=== PATIENT | male | born 1975 | race Two or more races ===

== ENCOUNTER → 2019-04-01 | Outpatient (CLI) | payer BC ==
[~2019-04-01] MED LIST: DEXA4TAB66 PO; GADOTERATE 7.5 MMOL/15 ML SYR ONE
== END | disposition home or self-care (01) ==
LOC: CFH 07:19
PROVIDERS: ATTEND Radiology Radiation Oncology
DX: C11.9 Malignant neoplasm of nasopharynx, unspecified (principal); G91.1 Obstructive hydrocephalus; Z79.899 Other long term (current) drug therapy
CPT/HCPCS: 70553; A9575

== ENCOUNTER → 2019-04-13 | Outpatient (CLI) | payer BC ==
[~2019-04-13] MED LIST changes: -GADOTERATE 7.5 MMOL/15 ML SYR ONE
== END | disposition home or self-care (01) ==
LOC: PETCFH 12:28
PROVIDERS: ATTEND Internal Medicine Hematology & Oncology
DX: C41.0 Malignant neoplasm of bones of skull and face (principal); R22.0 Localized swelling, mass and lump, head; K40.90 Unilateral inguinal hernia, without obstruction or gangrene, not specified as recurrent
CPT/HCPCS: 78815; A9552

== ENCOUNTER 2019-06-29 07:31 | Outpatient (CLI) | payer BC | END 2019-06-29 23:59 | disposition home or self-care (01) | LOC: ROC 07:31 | PROVIDERS: ATTEND Radiology Radiation Oncology | DX: C11.9 Malignant neoplasm of nasopharynx, unspecified (principal) | CPT/HCPCS: 99213; G0463 ==

== ENCOUNTER → 2019-09-19 | Outpatient (CLI) | payer BC | END | disposition home or self-care (01) | LOC: ROC 07:51 | PROVIDERS: ATTEND Radiology Radiation Oncology | DX: C11.9 Malignant neoplasm of nasopharynx, unspecified (principal) | CPT/HCPCS: 99213; G0463 ==

== ENCOUNTER 2019-10-26 14:34 | Inpatient (IN) | payer BC ==
[~2019-10-26] VITALS: Ht 170.2 cm; Wt 63.1 kg
--- NOTE | 2019-10-26 15:14 | NUR ---
orthos done as charted. law at bedside. aware of vs. piv est/labsdrawn/ivf infusing. plan for head ct. c/o insomnia x4 days, loss of appetite, fatigue. had hydrocephalus, no shunt or brain surg (fany jesus). in per cancer md. last rad/chemo august. as
[2019-10-26 15:22] LABS: BASOPHILS # (AUTO) 0.04 x10^3/uL (0-0.1); BASOPHILS % (AUTO) 1 % (0-1); EOSINOPHILS # (AUTO) 0.27 x10^3/uL (0-0.4); EOSINOPHILS % (AUTO) 4 % (1-7); LYMPHOCYTES % (AUTO) 21 % (22-44); MD NO; MEAN CORPUSCULAR HEMOGLOBIN 32.8 pg (27.5-34.5); MEAN CORPUSCULAR HGB CONC 32.2 g/dL (33.2-36.2); MEAN CORPUSCULAR VOLUME 101.9 fL (81-97); MONOCYTES # (AUTO) 0.55 x10^3/uL (0.2-0.8); MONOCYTES % (AUTO) 9 % (2-9); NEUTROPHILS # (AUTO) 4.02 x10^3/uL (1.8-6.8); NEUTROPHILS % (AUTO) 65 % (42-75); PLATELET COUNT 306 x10^3/uL (130-400); RED BLOOD COUNT 3.47 x10^6/uL (4.38-5.82); RED CELL DISTRIBUTION WIDTH 14.1 % (9.4-14.8)
[2019-10-26 15:29] LABS: INTERNATIONAL NORMALIZED RATIO 1.36 (0.93-1.1)
[2019-10-26 15:30] LABS: ALANINE AMINOTRANSFERASE 45 U/L (12-78); ALBUMIN 3.7 g/dL (3.4-5.0); ANION GAP 12 mmol/L (5-15); CALCIUM 9.5 mg/dL (8.5-10.1); CHLORIDE 104 mmol/L (98-107); CREATININE 2.12 mg/dL (0.7-1.3)
[2019-10-26 15:32] LABS: ALKALINE PHOSPHATASE 108 U/L (45-117); BILIRUBIN,TOTAL 0.6 mg/dL (0.2-1.0); TOTAL PROTEIN 7.7 g/dL (6.4-8.2)
--- NOTE | 2019-10-26 15:49 | NUR ---
labs back, ct wnl. awaiting ua. as
--- NOTE | 2019-10-26 15:56 | NUR ---
GIVEN WATER PER MD AND UA CUP.
--- NOTE | 2019-10-26 16:13 | NUR ---
TBADM DT ELEV CREATININE. PT AWARE AND AGREES. LAW IN ROOM.
--- NOTE | 2019-10-26 17:14 | NUR ---
BACK IN ROOM.
[2019-10-26] MEDS ORDERED: ACETAMINOPHEN 325 MG TABLET PO PRN (18:00)
[2019-10-26] MEDS ORDERED: DOCUSATE 100 MG CAPSULE PO PRN (18:00)
[2019-10-26] MEDS ORDERED: MELATONIN 3 MG TABLET PO PRN (18:00)
[2019-10-26] MEDS ORDERED: ONDANSETRON ODT 4 MG PO PRN (18:00)
[2019-10-26] MEDS ORDERED: ONDANSETRON 2MG/ML, 2ML IVPush PRN (18:00)
[2019-10-26] MEDS ORDERED: POLYETHYLENE GLYCOL 17 GM PACKET PO PRN (18:00)
--- NOTE | 2019-10-26 18:04 | NUR ---
REPORT GIVEN TO ANNELIESE FOR ROOM 437
[2019-10-26 18:30] VITALS: BP 125/82
[2019-10-26] MEDS: LACTATED RINGERS 1,000 ML IV SCH (19:33)
[2019-10-26] MEDS ORDERED: RIVA10TA2 PO (19:44)
[2019-10-26] MEDS ORDERED: ONDA8TAB9 PO (19:45)
[2019-10-26 21:49] LABS: MICROSCOPIC NOT IND
[2019-10-26 22:26] LABS: CREATININE,URINE RANDOM 28.6 mg/dL
[2019-10-27 00:59] VITALS: BP 102/65
[2019-10-27] MEDS: LACTATED RINGERS 1,000 ML IV SCH ×2 (05:02→15:00)
[2019-10-27] MEDS ORDERED: RIVAROXABAN 20 MG TABLET PO SCH (06:00)
[2019-10-27 06:37] VITALS: BP 100/69
[2019-10-27 07:48] LABS: ALBUMIN 3.2 g/dL (3.4-5.0); ANION GAP 6 mmol/L (5-15); CHLORIDE 110 mmol/L (98-107); MEAN CORPUSCULAR HEMOGLOBIN 33.7 pg (27.5-34.5); MEAN CORPUSCULAR HGB CONC 33.4 g/dL (33.2-36.2); MEAN CORPUSCULAR VOLUME 100.6 fL (81-97); MEAN PLATELET VOLUME 6.4 fL (7.4-10.4); PLATELET COUNT 281 x10^3/uL (130-400); RED BLOOD COUNT 3.13 x10^6/uL (4.38-5.82); RED CELL DISTRIBUTION WIDTH 13.9 % (9.4-14.8)
[2019-10-27 07:52] LABS: ALANINE AMINOTRANSFERASE 40 U/L (12-78); ALKALINE PHOSPHATASE 98 U/L (45-117); BILIRUBIN,TOTAL 0.7 mg/dL (0.2-1.0); CREATININE 1.68 mg/dL (0.7-1.3); TOTAL PROTEIN 6.8 g/dL (6.4-8.2)
[2019-10-27 08:27] LABS: BASOPHILS # (AUTO) 0.04 x10^3/uL (0-0.1); BASOPHILS % (AUTO) 1 % (0-1); EOSINOPHILS # (AUTO) 0.34 x10^3/uL (0-0.4); EOSINOPHILS % (AUTO) 10 % (1-7); LYMPHOCYTES # (AUTO) 1.04 x10^3/uL (1-3.4); LYMPHOCYTES % (AUTO) 30 % (22-44); MD SCAN; MONOCYTES # (AUTO) 0.47 x10^3/uL (0.2-0.8); MONOCYTES % (AUTO) 14 % (2-9); NEUTROPHILS # (AUTO) 1.57 x10^3/uL (1.8-6.8); NEUTROPHILS % (AUTO) 45 % (42-75)
[2019-10-27 13:23] VITALS: BP 99/68
== END 2019-10-27 16:20 | disposition home or self-care (01) | DRG 312 ==
LOC: ED 15:41 → EDIP 16:13 → 4NW 18:16 → DCLOUNGE 10-27 16:10
PROVIDERS: ADMIT Internal Medicine; ATTEND Family Medicine
DX: I95.1 Orthostatic hypotension (principal); N17.0 Acute kidney failure with tubular necrosis; C11.9 Malignant neoplasm of nasopharynx, unspecified; D53.9 Nutritional anemia, unspecified; E86.0 Dehydration; Z86.711 Personal history of pulmonary embolism; Z92.21 Personal history of antineoplastic chemotherapy; Z92.3 Personal history of irradiation
CPT/HCPCS: 36415; 70450; 70551; 71045; 80053; 81003; 82570; 84300; 85025; 85610; 85730; 93005; G0378; J7120

== ENCOUNTER 2019-11-21 11:09 | Outpatient (CLI) | payer BC ==
[~2019-11-21 11:09] MED LIST changes: +ONDA8TAB9 PO; +RIVA10TA2 PO
== END 2019-11-21 23:59 | disposition home or self-care (01) ==
LOC: LAB 11:09
PROVIDERS: ATTEND Internal Medicine Hematology & Oncology
DX: Z02.9 Encounter for administrative examinations, unspecified (principal)

== ENCOUNTER 2020-04-11 09:17 | Outpatient (CLI) | payer BC, MEDICAID ==
[2020-04-11] MEDS ORDERED: GADOTERATE 7.5 MMOL/15 ML SYR ONE (11:02)
== END 2020-04-11 23:59 | disposition home or self-care (01) ==
LOC: CFH 09:17
PROVIDERS: ATTEND Radiology Radiation Oncology
DX: C11.9 Malignant neoplasm of nasopharynx, unspecified (principal); H49.21 Sixth [abducent] nerve palsy, right eye; J32.9 Chronic sinusitis, unspecified
CPT/HCPCS: 70543; A9575

== ENCOUNTER → 2020-05-30 | Outpatient (CLI) | payer MEDICAID | END | disposition home or self-care (01) | LOC: PETCFH 08:12 | PROVIDERS: ATTEND Internal Medicine Hematology & Oncology | DX: C11.8 Malignant neoplasm of overlapping sites of nasopharynx (principal); K40.30 Unilateral inguinal hernia, with obstruction, without gangrene, not specified as recurrent | CPT/HCPCS: 78815; A9552 ==

== ENCOUNTER 2020-06-22 11:19 | Emergency (ER) | payer MEDICAID ==
[~2020-06-22] VITALS: Ht 170.2 cm; Wt 76.9 kg
[2020-06-22 11:24] VITALS: BP 123/89
--- NOTE | 2020-06-22 11:53 | NUR ---
SLAGGER: PT TO ROOM FROM LOBBY
--- NOTE | 2020-06-22 12:25 | NUR ---
MED REQUESTED FROM PHARMACY.
[2020-06-22] MEDS ORDERED: DEXAMETHASONE 4 MG TABLET PO ONE (12:30)
[2020-06-22] MEDS ORDERED: maalox/diphenh/lido/sucralfate 5 ML PO PRN (12:30)
[2020-06-22] MEDS ORDERED: DEXAMETHASONE 4 MG TABLET ONE (12:57)
== END 2020-06-22 13:20 | disposition home or self-care (01) ==
LOC: ED 12:47
DX: J02.0 Streptococcal pharyngitis (principal); Z85.22 Personal history of malignant neoplasm of nasal cavities, middle ear, and accessory sinuses
CPT/HCPCS: 87880; 99283

== ENCOUNTER 2020-10-16 12:41 | Outpatient (CLI) | payer MEDICAID ==
[2020-10-16] MEDS ORDERED: GADOTERATE 10 MMOL/20ML SYR ONE (15:49)
== END 2020-10-16 23:59 | disposition home or self-care (01) ==
LOC: RAD 12:41
PROVIDERS: ATTEND Internal Medicine Hematology & Oncology
DX: C79.51 Secondary malignant neoplasm of bone (principal); C11.8 Malignant neoplasm of overlapping sites of nasopharynx; E61.2 Magnesium deficiency; I26.99 Other pulmonary embolism without acute cor pulmonale; E86.0 Dehydration; K40.90 Unilateral inguinal hernia, without obstruction or gangrene, not specified as recurrent; N62 Hypertrophy of breast; J34.89 Other specified disorders of nose and nasal sinuses; J34.1 Cyst and mucocele of nose and nasal sinus; Z79.899 Other long term (current) drug therapy
CPT/HCPCS: 70553; 78815; A9552; A9575